=== PATIENT | male | born 1970 | race African-American/Black ===

== ENCOUNTER 2021-01-14 10:10 | Emergency (ER) | payer OTHER ==
[~2021-01-14] VITALS: Ht 172.7 cm; Wt 107.5 kg
[2021-01-14 11:11] VITALS: BP 148/90
[2021-01-14] MEDS ORDERED: NAPROXEN500 MG PO (11:49)
[2021-01-14] MEDS ORDERED: FLEXERIL PO (11:49)
== END 2021-01-14 12:25 | disposition home or self-care (01) ==
LOC: ER 10:10
DX: S16.1XXA Strain of muscle, fascia and tendon at neck level, initial encounter (principal); M54.50 Low back pain, unspecified; V49.88XA Car occupant (driver) (passenger) injured in other specified transport accidents, initial encounter; Y93.89 Activity, other specified; Y92.413 State road as the place of occurrence of the external cause; Y99.9 Unspecified external cause status